=== PATIENT | female | born 1955 | race Caucasian/White ===

== ENCOUNTER 2017-11-07 06:04 | Day surgery (SDC) | payer MEDICAID ==
[2017-11-07] MEDS: Lactated Ringers 1,000 ML IV SCH (07:07)
[2017-11-07] MEDS ORDERED: Propofol 200 MG/20 ML SDV ONE ×2 (07:55→08:15)
[2017-11-07] MEDS ORDERED: fentaNYL 100 MCG/2 ML SDV ONE (07:55)
--- NOTE | 2017-11-07 10:25 | OR ---
PREOPERATIVE DIAGNOSIS: Chronic gastroesophageal reflux disease. POSTOPERATIVE DIAGNOSES: 1. Small hiatal hernia with mild grade-1 gastroesophageal reflux disease. 2. Mild diffuse gastritis. PROCEDURE PROPOSED AND PROCEDURE DONE: Upper gastrointestinal panendoscopy with antral biopsies. INDICATION: This is a 62-year-old female bothered with chronic GERD. She has been taking a lot of Rolaids, Tums and omeprazole, and recently got started on Protonix, which she feels is helping her quite a bit. She denies any dysphagia. She has never had an EGD done before. DESCRIPTION OF PROCEDURE: The patient was brought to the endoscopy suite and placed in left lateral decubitus position. She was sedated per PROCESSING ANALYST with propofol. The flexible video gastroscope was then passed transorally and, under visualization, advanced well into the duodenum. In the duodenum, the duodenal bulb was unremarkable. The antrum appeared quite normal and healthy with a normal pyloric region. The body of the stomach, however, did reveal prominent rugal fold with some mild gastritis and couple of antral biopsies were taken to rule out H. pylori. She did have a small 2 to 2.5 cm hiatal hernia that appeared to be insignificant, and she had very mild GERD without any stenosis or Schatzki's ring and no signs of any Daley's esophagus. The remainder of the esophagus was normal as the scope was then withdrawn. She tolerated procedure well. FINAL IMPRESSION: 1. Small hiatal hernia with grade-1 gastroesophageal reflux disease. 2. Mild diffuse gastritis. PLAN: The patient appears to be doing well on her Protonix presently. She needs to cut back on her caffeine some more and follow up with her PCP as needed. If she continues to have GERD symptoms, consider repeat EGD in about 5 years. SCM: 11/07/2017 08:51:35 MODL: 11/07/2017 10:18:34 /[id number]
--- NOTE | 2017-11-07 10:28 | OR ---
PREOPERATIVE DIAGNOSIS: Screening colonoscopy. POSTOPERATIVE DIAGNOSES: Mild sigmoid diverticulosis, sigmoid polyps x2 removed. PROCEDURE PROPOSED: Total flexible colonoscopy. PROCEDURES DONE: Total flexible colonoscopy with polypectomy x2. INDICATIONS: This is a 62-year-old female who comes in for her first colonoscopic exam for screening purposes. She denies any symptomatology, and she has a negative family history for colon cancer. DESCRIPTION OF PROCEDURE: The patient was in the left lateral decubitus position. She was sedated per propofol. A flexible video colonoscope was then passed transanally and, under visualization, eventually advanced to the cecum. She had a rather tortuous colon and required repositioning on a couple of occasions and multiple maneuvers to get the scope advanced to the cecum, but a thorough examination was obtained. She had an excellent bowel prep. Examination revealed normal ascending, transverse and descending colons. The sigmoid colon revealed some very mild diverticulosis and at 20 cm, there were a couple of small polyps, probably hyperplastic, that were removed with cold biopsy forceps technique, and the remainder of the rectum was normal. The scope was then withdrawn. She tolerated the procedure well. FINAL IMPRESSION: 1. Sigmoid diverticulosis. 2. Sigmoid polyps at 20 cm x2, removed. PLAN: She will be sent a letter with pathology report. If these are hyperplastic nodules, I feel she can wait 10 years. If they are adenomatous, she should have a 5-year followup. SCM: 11/07/2017 08:51:35 MODL: 11/07/2017 10:23:30 /[id number]
[2017-11-07] MEDS: Promethazine Topical Gel 0.5 ML Syringe TOP ONE (10:55)
== END 2017-11-07 11:21 | disposition home or self-care (01) ==
LOC: VM.SDS 06:04
PROVIDERS: ATTEND Surgery
DX: Z12.11 Encounter for screening for malignant neoplasm of colon (principal); K21.9 Gastro-esophageal reflux disease without esophagitis; K63.5 Polyp of colon; K57.30 Diverticulosis of large intestine without perforation or abscess without bleeding; K29.50 Unspecified chronic gastritis without bleeding; K44.9 Diaphragmatic hernia without obstruction or gangrene; E78.00 Pure hypercholesterolemia, unspecified; K59.09 Other constipation; Z79.82 Long term (current) use of aspirin; Z79.899 Other long term (current) drug therapy; Z87.891 Personal history of nicotine dependence
CPT/HCPCS: A9270-GY; J2704; J3010; J7120

== ENCOUNTER 2023-01-20 06:21 | Day surgery (SDC) | payer MEDICARE, MEDICAID ==
[2023-01-20] MEDS ORDERED: Lactated Ringers 1,000 ML IV SCH (07:00)
[2023-01-20] MEDS ORDERED: fentaNYL 100 MCG/2 ML SDV ONE (07:46)
[2023-01-20] MEDS ORDERED: Propofol 200 MG/20 ML SDV ONE ×2 (07:46→08:06)
[2023-01-23] MEDS ORDERED: Lactated Ringers 1,000 ML IV SCH (07:00)
[2023-02-23] MEDS ORDERED: Lactated Ringers 1,000 ML IV SCH (07:00)
== END 2023-01-20 09:45 | disposition home or self-care (01) ==
LOC: VM.SDS 06:21
PROVIDERS: ATTEND Student in an Organized Health Care Education/Training Program
DX: Z12.11 Encounter for screening for malignant neoplasm of colon (principal); D12.3 Benign neoplasm of transverse colon; E78.00 Pure hypercholesterolemia, unspecified; K21.9 Gastro-esophageal reflux disease without esophagitis; F32.A Depression, unspecified; E66.3 Overweight; H61.21 Impacted cerumen, right ear; Z79.899 Other long term (current) drug therapy; Z98.890 Other specified postprocedural states; Z87.891 Personal history of nicotine dependence; Z68.28 Body mass index [BMI] 28.0-28.9, adult
CPT/HCPCS: 00811; 88305; J2704; J3010; J7120